=== PATIENT | male | born 1980 | race Caucasian/White ===

== ENCOUNTER → 2020-09-27 12:31 | Outpatient (CLI) | payer OTHER, SELFPAY ==
--- NOTE | 2020-09-27 | DI.US.S_ITS ---
PROCEDURE: US RENAL COMPLETE INDICATIONS: Unspecified renal colic TECHNIQUE: Real-time scanning was performed of the kidneys and bladder, with image documentation. COMPARISON: None. FINDINGS: Kidneys: Kidneys are normal in size. Right kidney measures 12.4 cm long; left kidney measures 12.2 cm long. Right renal cortical thickness is 1.7 cm; left renal cortical thickness is 1.7 cm. Renal cortical echotexture is normal. No hydronephrosis or nephrolithiasis. No suspicious solid mass lesions. Bladder: Pre-void bladder volume is 115 mL. Post-void residual is 0 mL. Pre-void images demonstrate no intraluminal masses or stones. On pre-void images, only the left ureteral jet is noted with color Doppler interrogation. (Of note, ureteral jets may not be detectable in up to 25% of cases due to insufficient differences in specific gravity between ureteral and bladder urine). Miscellaneous: No free pelvic fluid. IMPRESSION: No hydronephrosis. No sonographically detected urolithiasis. Dictated by: Sean Lujan M.D. on 09/27/2020 at 15:17 Approved by: Sean Lujan M.D. on 09/27/2020 at 15:18
== END ==
PROVIDERS: Referring Provider Urology; Visit Provider Urology
DX: N23 Unspecified renal colic (principal); Z87.442 Personal history of urinary calculi
CPT/HCPCS: 76770

== ENCOUNTER → 2022-11-21 13:02 | Outpatient (CLI) | payer OTHER, SELFPAY ==
--- NOTE | 2022-11-21 | DI.RAD.S_ITS ---
PROCEDURE: XR CALCANEOUS RT MIN 2V INDICATIONS: foot pain TECHNIQUE: Two views of the calcaneus were acquired. COMPARISON: None. FINDINGS: Bones: No fractures or dislocations. No suspicious bony lesions. Prominent plantar calcaneal enthesophyte. Soft tissues: No suspicious calcifications. Achilles tendon appears normal. IMPRESSION: No acute fracture. If pain persists with conservative management, recommend repeat imaging in 10-14 days or cross-sectional imaging. Dictated by: Khalif Brian M.D. on 11/21/2022 at 14:59 Approved by: Khalif Brian M.D. on 11/21/2022 at 15:00
--- NOTE | 2022-11-21 | DI.RAD.S_ITS ---
PROCEDURE: XR CALCANEOUS LT MIN 2V INDICATIONS: foot pain TECHNIQUE: Two views of the calcaneus were acquired. COMPARISON: None. FINDINGS: Bones: No fractures or dislocations. No suspicious bony lesions. Prominent calcaneal plantar enthesophyte. Calcification at the Achilles insertion, likely representing enthesophyte formation. Soft tissues: No suspicious calcifications. Achilles tendon appears normal. IMPRESSION: No acute fracture or dislocation. If pain persists conservative management, recommend repeat x-ray in 10-14 days or cross-sectional imaging. Dictated by: Khalif Brian M.D. on 11/21/2022 at 15:00 Approved by: Khalif Brian M.D. on 11/21/2022 at 15:02
== END ==
PROVIDERS: Referring Provider Chiropractor; Visit Provider Chiropractor
DX: M77.31 Calcaneal spur, right foot (principal); M77.32 Calcaneal spur, left foot
CPT/HCPCS: 73650

== ENCOUNTER 2023-08-12 09:48 | Day surgery (SDC) | payer OTHER, SELFPAY ==
[2023-08-12 10:16] VITALS: BP 144/87; PULSE 73; RESP 16; TEMP 36.4; O2SAT 98
--- NOTE | 2023-08-12 10:54 | PM.HP.1 ---
History of Present Illness History of Present Illness Date Patient Seen: 08/12/23 Chief complaint: Colonoscopy Narrative: Rectal bleed [facility] Social History Smoking Status: Former smoker Meds Home Medications and Allergies Allergies Allergy/AdvReac Type Severity Reaction Status Date / Time No Known Drug Allergies Allergy Verified 08/12/23 10:03 Exam Vital Signs (past 8 hours): - 08/12/23 10:16 Temperature 97.6 F Pulse Rate 73 Respiratory Rate 16 Blood Pressure 144/87 H Pulse Oximetry 98 Oxygen Delivery Method Room Air Oxygen Delivery Method Room Air Narrative Exam Narrative: Oropharynx free of lesions Chest clear to auscultation percussion Cardiac exam reveals no S3 or murmur Assessment & Plan Assessment & Plan narrative: History of rectal bleeding need for for screening colonoscopy. Risks, benefits, alternatives have been explained.
--- NOTE | 2023-08-12 10:55 | PM.OP.COLON ---
Operative Date/Time/Diagnoses Date of procedure: 08/12/23 Pre-op diagnosis: See indication and findings Procedure & Clinicians Study performed: Colonoscopy Indications: Rectal bleed and for screening colonoscopy Surgeon: Zeb Das Procedure Notes Procedure in detail: After informed consent was obtained the patient was placed in left lateral decubitus position. The video colonoscope was introduced the rectum slowly advanced to the cecum. On slow withdrawal mucosa was carefully examined. Preparation was good. The scope was removed. The patient tolerated procedure well. Blood loss none Complications none Sedation mac Findings 1. Moderate internal hemorrhoids 2. Mild scattered left and sigmoid diverticulosis 3. Otherwise negative colonoscopy to cecum Patient should have follow-up colonoscopy at age 53. He should get back in touch if he has further bleeding which she has not had any of in the last 3 months
[2023-08-12 11:23] VITALS: BP 106/86; PULSE 70; RESP 16; TEMP 36.2; O2SAT 98
[2023-08-12 11:35] VITALS: BP 112/66; PULSE 68; RESP 16; TEMP 36.2; O2SAT 98
[2023-08-12 11:40] VITALS: BP 102/77; PULSE 74; RESP 15; TEMP 36.8; O2SAT 98
[2023-08-12 11:43] VITALS: BP 106/66; PULSE 75; RESP 16; TEMP 36.2; O2SAT 98
== END 2023-08-12 11:50 | disposition home or self-care (01) ==
PROVIDERS: Referring Provider Internal Medicine Gastroenterology; Visit Provider Internal Medicine Gastroenterology
PROC: 0DJD8ZZ Inspection of Lower Intestinal Tract, Via Natural or Artificial Opening Endoscopic (ICD-10-PCS; CPT 45378; principal; 2023-08-12 11:00)
DX: K62.5 Hemorrhage of anus and rectum (principal); K64.8 Other hemorrhoids; K57.30 Diverticulosis of large intestine without perforation or abscess without bleeding
CPT/HCPCS: 45378; J2704

== ENCOUNTER → 2025-04-30 07:34 | Outpatient (CLI) | payer OTHER, SELFPAY ==
--- NOTE | 2025-04-30 07:37 | DI.MRI.S_ITS ---
PROCEDURE: MR SHOULDER RT WO CON INDICATIONS: right shoulder pain TECHNIQUE: Noncontrast oblique coronal T2 fast spin echo with fat saturation, oblique sagittal T1 spin echo and T2 fast spin echo with fat saturation, axial T1 spin echo and T2 fast spin echo with fat saturation through the shoulder. COMPARISON: None. FINDINGS: Image quality: Excellent. Rotator cuff: Mild tendinosis of the supraspinatus and the infraspinatus. There is low-grade, bursal sided tear at the critical zone of the posterior supraspinatus (08:10). No tear of the infraspinatus. The teres minor is unremarkable. The subscapularis is unremarkable. No muscle edema or fatty atrophy. Bones and bursae: Moderate degenerative changes of the acromioclavicular joint. Type 1 acromion. No os acromiale. Trace subacromial/subdeltoid bursitis. Marrow signal about the glenohumeral joint is normal for age. No acute fracture. No focal chondral defect of the glenohumeral articulation. Capsule and soft tissues: The labrum is intact. No paralabral cyst. The extra-articular biceps tendon is unremarkable. Mild tendinosis of the intra- articular biceps tendon. Trace glenohumeral effusion. No intra-articular body. IMPRESSION: 1. Low-grade tear of the posterior supraspinatus. 2. Moderate degenerative changes of the acromioclavicular joint. 3. Mild tendinosis of the intra-articular biceps tendon. Dictated by: Solange Nance M.D. on 04/30/2025 at 11:24 Approved by: Solange Nance M.D. on 04/30/2025 at 11:36
== END ==
PROVIDERS: PCP Internal Medicine; Referring Provider Internal Medicine; Visit Provider Internal Medicine
DX: M75.111 Incomplete rotator cuff tear or rupture of right shoulder, not specified as traumatic (principal); M25.511 Pain in right shoulder; M67.921 Unspecified disorder of synovium and tendon, right upper arm
CPT/HCPCS: 73221